=== PATIENT | female | born 1935 | race Caucasian/White ===

== ENCOUNTER 2017-10-03 17:10 | Inpatient (IN) | payer MEDICARE, OTHER ==
[~2017-10-03] VITALS: Ht 160 cm; Wt 112.0 kg
[~2017-10-03 17:10] MED LIST: AMLO5TAB4 PO; CALC-31 PO; LISI10TA2 PO; METO25TA4 PO; MULT-18 PO; POTA20TA12 PO; SIMV10TA PO; TRAM1TAB56 PO
[2017-10-03] MEDS ORDERED: IV NORMAL SALINE 1,000ML 1,000 ML IV SCH (18:10)
[2017-10-03] MEDS ORDERED: 0.9 % SODIUM CHLORIDE 10 ML DISP.SYRIN. IV PRN (18:15)
--- NOTE | 2017-10-03 18:34 | PHYS DOC ---
Past History Past Medical History: High Cholesterol, Hypertension Past Surgical History: Cholecystectomy Alcohol Use: None Drug Use: None Adult General Chief Complaint Chief Complaint: ABNORMAL LABS HPI HPI 81-year-old female patient with history of hypertension and dyslipidemia and resident of senior care with bedridden addition because of fractured hip brought in by EMS because of abnormal labs. Patient states for the last several days she did not have appetite and didn't eat and drink like her usual and was more weak and tired. Evaluation's niece states she did not acting like her usual and had blood test today. According to lab reports from senior care she had BUN of 115 creatinine of 2.3 with previous BUN of 64 and creatinine of 1.5. Patient had unremarkable CBC today. She denies chest pain, shortness of breath, fever and chills, urinary symptom. Review of Systems Review of Systems Constitutional: Denies fever or chills, reports generalized weakness [] Eyes: Denies change in visual acuity, redness, or eye pain [] HENT: Denies nasal congestion or sore throat [] Respiratory: Denies cough or shortness of breath [] Cardiovascular: No additional information not addressed in HPI [] GI: Denies abdominal pain, nausea, vomiting, bloody stools or diarrhea [] : Denies dysuria or hematuria [] Musculoskeletal: Denies back pain or joint pain [] Integument: Denies rash or skin lesions [] Neurologic: Denies headache, focal weakness or sensory changes [] Endocrine: Denies polyuria or polydipsia [] All other systems were reviewed and found to be within normal limits, except as documented in this note. Current Medications Current Medications Current Medications Medications (Trade) Dose Ordered Sig/Shahbaz Start Time Stop Time Status Last Admin Dose Admin Sodium Chloride (Normal Saline Flush) 10 ml QSHIFT PRN 10/03/17 18:15 Allergies Allergies Allergies Coded Allergies Type Severity Reaction Last Updated Verified No Known Drug Allergies 12/05/14 No Physical Exam Physical Exam Constitutional: Well developed, mild distress, non-toxic appearance. [] HENT: Normocephalic, atraumatic, bilateral external ears normal, oropharynx dry , no oral exudates, nose normal. [] Eyes: PERRLA, EOMI, conjunctiva normal, no discharge. [] Neck: Normal range of motion, no tenderness, supple, no stridor. [] Cardiovascular:Heart rate regular rhythm, no murmur [] Lungs & Thorax: Bilateral breath sounds clear to auscultation [] Abdomen: Bowel sounds normal, soft, no tenderness, no masses, no pulsatile masses. [] Skin: Warm, dry, no erythema, no rash. [] Back: No tenderness, no CVA tenderness. [] Extremities: No tenderness, no cyanosis, no clubbing, ROM intact, no edema. [] Neurologic: Alert and oriented X 3, patient keeps bilateral lower extremity in external rotation flexion without movement of lower extremity Psychologic: Affect normal, judgement normal, mood normal. [] EKG EKG EKG interpreted by me. EKG at 1814 showed normal sinus rhythm at rate of 84, left axis deviation, left anterior vascular block, LVH with repolarization abnormality, Q waves in anterior leads, no acute ST and T wave abnormality Radiology/Procedures Radiology/Procedures [] Course & Med Decision Making Course & Med Decision Making Pertinent Labs and Imaging studies reviewed. (See chart for details) Evaluation of patient in ER showed 81-year-old female patient with history of chronic renal failure sent from senior care because of acute on chronic renal failure. Patient had blood pressure of 90s that improved with 1 L of normal saline. Patient did not have leukocytosis or elevation of lactic acid or UTI. She was alert and oriented. Plan to admit patient with diagnosis of acute on chronic renal failure and dehydration. On-call hospitalist Dr. Recio accepted admission at 2038. Patient informed about plan of care and needs for admission. Dragon Disclaimer Dragon Disclaimer This electronic medical record was generated, in whole or in part, using a voice recognition dictation system. Departure Departure: Impression: Primary Impression: Acute on chronic renal failure Additional Impressions: Dehydration Hypermagnesemia Hypotension Disposition: ADMITTED INPATIENT (at 2038) Admitting Physician: Leigh Ann Recio Condition: IMPROVED Referrals: RANDALL TRUJILLO MD (PCP) Problem Qualifiers SPENCER BE MD Oct 03, 2017 18:33
[2017-10-03 19:51] LABS: BASO # 0.1 x10^3/uL (0.0-0.2); BASO % 1 % (0-3); EOS # 0.1 x10^3/uL (0.0-0.7); EOS % 2 % (0-3); HEMOGLOBIN 14.2 g/dL (12.0-15.5); LYMPH # 0.7 x10^3/uL (1.0-4.8); LYMPH % 12 % (24-48); MEAN CORPUSCULAR HEMOGLOBIN 32 pg (25-35); MEAN CORPUSCULAR HGB CONC 34 g/dL (31-37); MEAN CORPUSCULAR VOLUME 96 fL (79-100); MONO # 0.8 x10^3/uL (0.0-1.1); MONO % 12 % (0-9); NEUT # 4.5 x10^3uL (1.8-7.7); NEUT % 73 % (31-73); PLATELET COUNT 198 x10^3/uL (140-400); RED CELL DISTRIBUTION WIDTH 12.7 % (11.5-14.5); WHITE BLOOD COUNT 6.3 x10^3/uL (4.0-11.0)
[2017-10-03 20:06] LABS: ALBUMIN/GLOBULIN RATIO 0.7 (1.0-1.7); CALCIUM 9.1 mg/dL (8.5-10.1); CREATININE 2.9 mg/dL (0.6-1.0); GFR 15.6; MAGNESIUM 2.6 mg/dL (1.8-2.4); PHOSPHORUS 4.7 mg/dL (2.6-4.7); POTASSIUM 4.3 mmol/L (3.5-5.1); TOTAL BILIRUBIN 0.6 mg/dL (0.2-1.0); TOTAL PROTEIN 7.4 g/dL (6.4-8.2)
[2017-10-03 20:24] LABS: BILIRUBIN,URINE NEG (NEG); CLARITY,URINE HAZY; COLOR,URINE YELLOW; GLUCOSE,URINE NEG (NEG); NITRITE,URINE NEG (NEG); UROBILINOGEN,URINE 0.2 mg/dL (0.2 mg/dL)
[2017-10-03 20:25] LABS: BACTERIA,URINE 0 /HPF (0-FEW); SQUAMOUS EPITHELIAL CELL,UR FEW /LPF
[2017-10-03 20:26] LABS: AMORPHOUS SEDIMENT,UR PRESENT /HPF; HYALINE CASTS, URINE MOD /HPF
[2017-10-03] MEDS: IV NORMAL SALINE 1,000ML 1,000 ML IV SCH (22:00)
[2017-10-03 23:12] VITALS: BP 130/84
[2017-10-04] MEDS ORDERED: DIPH25CA58 PO (01:35)
[2017-10-04] MEDS ORDERED: BUPR150T15 PO (01:35)
[2017-10-04] MEDS ORDERED: BISA10SU2 RC (01:35)
[2017-10-04] MEDS ORDERED: FURO-68 PO (01:35)
[2017-10-04] MEDS ORDERED: MELA3TAB2 PO (01:35)
[2017-10-04] MEDS ORDERED: MAGN2400 PO (01:35)
[2017-10-04] MEDS ORDERED: HYDR-971 PO ×2 (01:35)
[2017-10-04] MEDS ORDERED: ACET500T68 PO (01:35)
[2017-10-04] MEDS ORDERED: OLAN2.5T3 PO (01:35)
[2017-10-04] MEDS ORDERED: POLY17PO5 PO (01:35)
[2017-10-04] MEDS ORDERED: DOCU-109 PO ×2 (01:35)
[2017-10-04] MEDS ORDERED: MIRA25TA PO (01:35)
[2017-10-04] MEDS ORDERED: LIDO700A39 TP (01:35)
[2017-10-04] MEDS ORDERED: METO2.5T PO (01:35)
[2017-10-04] MEDS ORDERED: CLOT15CR3 TP (01:35)
[2017-10-04] MEDS ORDERED: FAMO20TA5 PO (01:35)
[2017-10-04] MEDS: IV NORMAL SALINE 1,000ML 1,000 ML IV SCH ×3 (03:54→21:06)
[2017-10-04 05:45] VITALS: BP 102/61
--- NOTE | 2017-10-04 06:16 | EKG ---
[address] [address] Test Date: 2017-10-03 Test Time: 18:15:37 Pat Name: ALETA WILSON Department: Room: 125 A Gender: F [employer] Systems Engineer: : [id number] Requested By: SPENCER BE Order Number: [id number] Reading MD: Diaz Castano Measurements Intervals [place] Rate: 84 P: -88 TX: 172 QRS: -58 QRSD: 110 T: 64 QT: 370 QTc: 440 Interpretive Statements SINUS RHYTHM ABNORMAL LEFT AXIS DEVIATION LEFT ANTERIOR FASCICULAR BLOCK LVH WITH REPOLARIZATION ABNORMALITY QRS(T) CONTOUR ABNORMALITY CONSISTENT WITH POSSIBLE ANTERIOR INFARCT PROBABLY OLD ABNORMAL ECG RI6.01 No previous ECG available for comparison Electronically Signed On 10-08-2017 14:39:44 SPECIAL EDUCATION SUPERVISOR by Diaz Castano
[2017-10-04 06:36] LABS: BASO % 1 % (0-3); EOS # 0.1 x10^3/uL (0.0-0.7); EOS % 4 % (0-3); HEMATOCRIT 40.6 % (36.0-47.0); HEMOGLOBIN 13.8 g/dL (12.0-15.5); LYMPH # 0.7 x10^3/uL (1.0-4.8); LYMPH % 17 % (24-48); MEAN CORPUSCULAR HEMOGLOBIN 33 pg (25-35); MEAN CORPUSCULAR HGB CONC 34 g/dL (31-37); MEAN CORPUSCULAR VOLUME 96 fL (79-100); MONO # 0.5 x10^3/uL (0.0-1.1); MONO % 13 % (0-9); NEUT # 2.5 x10^3uL (1.8-7.7); NEUT % 65 % (31-73); PLATELET COUNT 165 x10^3/uL (140-400); RED BLOOD COUNT 4.24 x10^6/uL (3.50-5.40); RED CELL DISTRIBUTION WIDTH 12.7 % (11.5-14.5); WHITE BLOOD COUNT 3.9 x10^3/uL (4.0-11.0)
[2017-10-04] MEDS ORDERED: ACETAMINOPHEN 500 MG TABLET PO PRN (06:45)
[2017-10-04] MEDS ORDERED: CLOTRIMAZOLE/BETAMETH 1%-0.05% TOPICAL CREAM 15GM TUBE. TP PRN (06:45)
[2017-10-04] MEDS ORDERED: DOCUSATE SODIUM 100 MG CAPSULE PO PRN (06:45)
[2017-10-04] MEDS ORDERED: OLANZapine 2.5 MG TABLET PO PRN (06:45)
[2017-10-04] MEDS ORDERED: FAMOTIDINE 20 MG TABLET PO PRN (06:45)
[2017-10-04] MEDS ORDERED: HYDROcodone/APAP 5/325MG 1 TAB TABLET PO PRN (06:45)
[2017-10-04] MEDS ORDERED: BISACODYL 10 MG SUPP.RECT RC PRN (06:45)
[2017-10-04 06:57] LABS: ALBUMIN 2.7 g/dL (3.4-5.0); ALBUMIN/GLOBULIN RATIO 0.7 (1.0-1.7); CALCIUM 8.7 mg/dL (8.5-10.1); CREATININE 2.3 mg/dL (0.6-1.0); GFR 20.4; MAGNESIUM 2.4 mg/dL (1.8-2.4); POTASSIUM 4.2 mmol/L (3.5-5.1); TOTAL BILIRUBIN 0.5 mg/dL (0.2-1.0); TOTAL PROTEIN 6.7 g/dL (6.4-8.2)
--- NOTE | 2017-10-04 07:59 | RAD ---
Portable chest, 10/03/2017: History: Dehydration The patient is rotated to the right with kyphotic in positioning. The depth of inspiration is suboptimal. The heart is probably at the upper limits of normal in size. The pulmonary vascularity is normal. There is mild linear atelectasis or scarring in the lung bases. The upper lung shelley are clear. No pleural fluid is seen. Degenerative changes are evident in the spine. IMPRESSION: Mild bibasilar linear atelectasis and/or scarring.
[2017-10-04] MEDS: MULTIVITAMIN with MINERAL TABLET. PO SCH (08:29)
[2017-10-04] MEDS: POLYETHYLENE GLYCOL 3350 17 GM PACKET. PO SCH (08:29)
[2017-10-04] MEDS: HYDROcodone/APAP 5/325MG 1 TAB TABLET PO SCH ×3 (08:29→21:01)
[2017-10-04] MEDS: buPROPion XL 150 MG TAB.ER.24H PO SCH (08:29)
[2017-10-04] MEDS: DOCUSATE SODIUM 100 MG CAPSULE PO SCH ×2 (08:30→21:01)
[2017-10-04] MEDS: LIDOCAINE (700MG/PATCH) PATCH. TP SCH (08:31)
[2017-10-04 11:22] VITALS: BP 99/58
--- NOTE | 2017-10-04 12:27 | HP ---
ADMIT DATE: 10/03/2017 REASON FOR ADMISSION: Abnormal labs, acute renal failure. HISTORY OF PRESENT ILLNESS: This is an 81-year-old female with a history of hypertension who was brought to the Emergency Room because of abnormal labs. The patient has not had much to eat or drink in the last several days, but I believe she is continuing to get her diuretics. Labs from the detention revealed a BUN of 115, creatinine of 2.3. Previous had been BUN of 64 and creatinine of 1.5. The patient was admitted. PAST MEDICAL HISTORY: Osteoarthritis, bilateral clubfeet, nonambulatory status, hypertension, hyperlipidemia. PAST SURGICAL HISTORY: Cholecystectomy. SOCIAL HISTORY: Resides in [place] currently. MEDICATIONS: Reviewed. The patient has been on lisinopril 10, metolazone 2.5 three times a week as well as Lasix 40 mg twice a day. These have been held. ALLERGIES: None. REVIEW OF SYSTEMS: The patient really did not wish to talk and kept asking me to raise the head of the bed, close the curtains and such type like that. She did not allow me to examine her. OBJECTIVE: VITAL SIGNS: Blood pressure 102/61, pulse 84, respirations 20, temperature 98.2, pulse ox 94% on room air. Height 63 inches, weight 249 pounds. GENERAL: Elderly female in no acute distress. Her color is pale. She is mildly hard of hearing. HEENT: Her eyes are clear. Nose is patent. Throat, tongue slightly dry. NECK: Supple. LUNGS: Clear. CARDIOVASCULAR: Regular rhythm and rate, 2/6 systolic murmur. ABDOMEN: Soft, nontender. EXTREMITIES: Without edema. She has bilateral deformed clubfeet. She is nonambulatory. LABORATORY DATA: White blood cell count 3.9, lymphs 17, monos 13. Chemistry: Yesterday, BUN was 123, creatinine was 2.9. This morning after hydration, BUN is 109, creatinine is 2.3. Albumin is 2.7. INR is 1.4. ASSESSMENT: 1. Acute renal failure secondary to continued diuretics without eating and drinking. 2. Functional quadriplegia. The patient is a total care patient. 3. Weakness. 4. Dehydration. 5. Severe protein-calorie malnutrition. PLAN: Hydration and treat other medical conditions. FLOR JOLLEY DO DR: Nahun JOB#: [id number] / [id number]
[2017-10-04 17:17] VITALS: BP 117/63
[2017-10-04 19:46] VITALS: BP 101/62
[2017-10-04] MEDS: MELATONIN 3 MG TABLET PO SCH (21:01)
[2017-10-04] MEDS: MIRABEGRON 25 MG TAB.ER.24H PO SCH (21:06)
[2017-10-04 23:55] VITALS: BP 106/75
[2017-10-05 07:00] LABS: ALBUMIN 2.7 g/dL (3.4-5.0); ALBUMIN/GLOBULIN RATIO 0.7 (1.0-1.7); CREATININE 1.5 mg/dL (0.6-1.0); GFR 33.3; MAGNESIUM 2.4 mg/dL (1.8-2.4); POTASSIUM 3.8 mmol/L (3.5-5.1); TOTAL BILIRUBIN 0.5 mg/dL (0.2-1.0); TOTAL PROTEIN 6.5 g/dL (6.4-8.2)
[2017-10-05 07:08] LABS: BASO % 1 % (0-3); EOS # 0.2 x10^3/uL (0.0-0.7); EOS % 6 % (0-3); HEMATOCRIT 39.2 % (36.0-47.0); HEMOGLOBIN 13.2 g/dL (12.0-15.5); LYMPH # 0.7 x10^3/uL (1.0-4.8); LYMPH % 19 % (24-48); MEAN CORPUSCULAR HEMOGLOBIN 33 pg (25-35); MEAN CORPUSCULAR HGB CONC 34 g/dL (31-37); MEAN CORPUSCULAR VOLUME 97 fL (79-100); MONO # 0.5 x10^3/uL (0.0-1.1); MONO % 15 % (0-9); NEUT % 58 % (31-73); PLATELET COUNT 179 x10^3/uL (140-400); RED BLOOD COUNT 4.04 x10^6/uL (3.50-5.40); WHITE BLOOD COUNT 3.4 x10^3/uL (4.0-11.0)
[2017-10-05] MEDS: DOCUSATE SODIUM 100 MG CAPSULE PO SCH ×2 (09:03→20:28)
[2017-10-05] MEDS: MULTIVITAMIN with MINERAL TABLET. PO SCH (09:03)
[2017-10-05] MEDS: HYDROcodone/APAP 5/325MG 1 TAB TABLET PO SCH ×3 (09:03→20:27)
[2017-10-05] MEDS: buPROPion XL 150 MG TAB.ER.24H PO SCH (09:03)
[2017-10-05] MEDS: LIDOCAINE (700MG/PATCH) PATCH. TP SCH (09:04)
[2017-10-05 09:11] LABS: % BASOS 1 % (0-3); % EOS 7 % (0-5); % LYMPHS 22 % (24-48); % MONOS 9 % (0-10); % SEGS 61 % (35-66)
[2017-10-05 09:12] LABS: PLT ESTIMATE ADEQUATE (ADEQUATE)
[2017-10-05 10:16] VITALS: BP 129/80
[2017-10-05 14:00] VITALS: BP 104/62
--- NOTE | 2017-10-05 18:43 | PDOC ---
Exam Note: Nic Note: Please also refer to the separate dictated note~for this date of service dictated separately.~Patient seen individually. Discussed the patient with Nursing staff reviewed the chart.~Reviewed interim history and current functioning. Reviewed vital signs,~Labs/ Radiology~and current medications noted below. Continue current treatment with the changes noted in the dictated addendum note Assessment: Vital Signs: Vital Signs Date Time Temp Pulse Resp B/P (MAP) Pulse Ox O2 Delivery O2 Flow Rate FiO2 10/05/17 14:00 97.5 75 24 104/62 (76) 96 10/05/17 10:16 Room Air I&O Intake and Output 10/05/17 07:00 Intake Total 3401.77 ml Output Total 1800 ml Balance 1601.77 ml Intake Oral 730 ml IV Total 2671.77 ml Output Urine Total 1800 ml Labs: Laboratory Tests Test 10/05/17 06:27 White Blood Count 3.4 x10^3/uL (4.0-11.0) L Red Blood Count 4.04 x10^6/uL (3.50-5.40) Hemoglobin 13.2 g/dL (12.0-15.5) Hematocrit 39.2 % (36.0-47.0) Mean Corpuscular Volume 97 fL (79-100) Mean Corpuscular Hemoglobin 33 pg (25-35) Mean Corpuscular Hemoglobin Concent 34 g/dL (31-37) Red Cell Distribution Width 13.0 % (11.5-14.5) Platelet Count 179 x10^3/uL (140-400) Neutrophils (%) (Auto) 58 % (31-73) Lymphocytes (%) (Auto) 19 % (24-48) L Monocytes (%) (Auto) 15 % (0-9) H Eosinophils (%) (Auto) 6 % (0-3) H Basophils (%) (Auto) 1 % (0-3) Neutrophils # (Auto) 2.0 x10^3uL (1.8-7.7) Lymphocytes # (Auto) 0.7 x10^3/uL (1.0-4.8) L Monocytes # (Auto) 0.5 x10^3/uL (0.0-1.1) Eosinophils # (Auto) 0.2 x10^3/uL (0.0-0.7) Basophils # (Auto) 0.0 x10^3/uL (0.0-0.2) Segmented Neutrophils % 61 % (35-66) Lymphocytes % 22 % (24-48) L Monocytes % 9 % (0-10) Eosinophils % 7 % (0-5) H Basophils % 1 % (0-3) Platelet Estimate Adequate (ADEQUATE) Sodium Level 144 mmol/L (136-145) Potassium Level 3.8 mmol/L (3.5-5.1) Chloride Level 108 mmol/L (98-107) H Carbon Dioxide Level 24 mmol/L (21-32) Anion Gap 12 (6-14) Blood Urea Nitrogen 79 mg/dL (7-20) H Creatinine 1.5 mg/dL (0.6-1.0) H Estimated GFR (Cockcroft-Gault) 33.3 BUN/Creatinine Ratio 53 (6-20) H Glucose Level 79 mg/dL (70-99) Calcium Level 9.0 mg/dL (8.5-10.1) Magnesium Level 2.4 mg/dL (1.8-2.4) Total Bilirubin 0.5 mg/dL (0.2-1.0) Aspartate Amino Transferase (AST) 21 U/L (15-37) Alanine Aminotransferase (ALT) 13 U/L (14-59) L Alkaline Phosphatase 69 U/L (46-116) Total Protein 6.5 g/dL (6.4-8.2) Albumin 2.7 g/dL (3.4-5.0) L Albumin/Globulin Ratio 0.7 (1.0-1.7) L Current Medications: Meds: Current Medications Sodium Chloride 1,000 ml @ 1,000 mls/hr Q1H IV Last administered on 10/03/17at 18:40; Start 10/03/17 at 18:10; Stop 10/03/17 at 19:09; Status DC Sodium Chloride (Normal Saline Flush) 10 ml QSHIFT PRN IV AFTER MEDS AND BLOOD DRAWS; Start 10/03/17 at 18:15 Sodium Chloride 1,000 ml @ 100 mls/hr Q10H IV Last administered on 10/04/17at 21 :06; Start 10/03/17 at 20:40; Stop 10/04/17 at 20:39; Status DC Acetaminophen (Tylenol) 1,000 mg PRN Q6HRS PRN PO PAIN; Start 10/04/17 at 06:45 Bisacodyl (Dulcolax Supp) 10 mg PRN DAILY PRN RC CONSTIPATION; Start 10/04/17 at 06:45 Bupropion HCl (Wellbutrin Xl) 150 mg DAILY PO Last administered on 10/05/17at 09: 03; Start 10/04/17 at 09:00 Betamethasone/ Clotrimazole (Lotrisone) 1 armond PRN TID PRN TP Antifungal / Redness; Start 10/04/17 at 06:45 Docusate Sodium (Colace) 100 mg BID PO Last administered on 10/05/17at 09:03; Start 10/04/17 at 09:00 Docusate Sodium (Colace) 100 mg PRN DAILY PRN PO CONSTIPATION; Start 10/04/17 at 06:45 Famotidine (Pepcid) 20 mg PRN DAILY PRN PO GERD; Start 10/04/17 at 06:45 Acetaminophen/ Hydrocodone Bitart (Lortab 5/325) 1 tab PRN Q6HRS PRN PO PAIN; Start 10/04/17 at 06:45 Acetaminophen/ Hydrocodone Bitart (Lortab 5/325) 1 tab TID PO Last administered on 10/05/17at 14:47; Start 10/04/17 at 09:00 Lidocaine (Lidoderm) 1 patch DAILY TP Last administered on 10/05/17at 09:04; Start 10/04/17 at 09:00 Olanzapine (ZyPREXA) 1.25 mg PRN Q2HR PRN PO ANXIETY / AGITATION; Start at 06:45 Polyethylene Glycol (miraLAX) 17 gm QODAY PO ; Start 10/04/17 at 09:00 Melatonin 3 mg QHS PO Last administered on 10/04/17at 21:01; Start 10/04/17 at 21: 00 Multivitamins/ Calcium (Thera-M Plus) 1 tab DAILY PO Last administered on at 09:03; Start 10/04/17 at 09:00 Active Scripts Active Reported Lotrisone Cream (Clotrimazole/Betamethasone Dip) 15 Gm Cream..g. 1 Armond TP PRN TID PRN LAST DOSE GIVEN: DATE: TIME: NEXT DOSE DUE: DATE: TIME: Benadryl (Diphenhydramine Hcl) 25 Mg Capsule 50 Mg PO HS PRN LAST DOSE GIVEN: DATE: TIME: NEXT DOSE DUE: DATE: TIME: Famotidine 20 Mg Tablet 20 Mg PO PRN DAILY PRN LAST DOSE GIVEN: DATE: TIME: NEXT DOSE DUE: DATE: TIME: Raven 5-325 Tablet (Hydrocodone Bit/Acetaminophen) 1 Each Tablet 1 Tab PO TID LAST DOSE GIVEN: DATE: TIME: NEXT DOSE DUE: DATE: TIME: Lasix (Furosemide) 40 Mg Tablet 40 Mg PO BID LAST DOSE GIVEN: DATE: TIME: NEXT DOSE DUE: DATE: TIME: Colace (Docusate Sodium) 100 Mg Capsule 100 Mg PO BID LAST DOSE GIVEN: DATE: TIME: NEXT DOSE DUE: DATE: TIME: Melatonin 3 Mg Tablet 3 Mg PO HS LAST DOSE GIVEN: DATE: TIME: NEXT DOSE DUE: DATE: TIME: Myrbetriq (Mirabegron) 25 Mg Tab.er.24h 25 Mg PO HS LAST DOSE GIVEN: DATE: TIME: NEXT DOSE DUE: DATE: TIME: Zyprexa (Olanzapine) 2.5 Mg Tablet 1.25 Mg PO PRN Q2HR PRN LAST DOSE GIVEN: DATE: TIME: NEXT DOSE DUE: DATE: TIME: Wellbutrin Xl (Bupropion Hcl) 150 Mg Tab.er.24h 150 Mg PO DAILY LAST DOSE GIVEN: DATE: TIME: NEXT DOSE DUE: DATE: TIME: Metolazone 2.5 Mg Tablet 2.5 Mg PO 3X/WEEK LAST DOSE GIVEN: DATE: TIME: NEXT DOSE DUE: DATE: TIME: Lidocaine 1 Each Adh..patch 1 Patch TP DAILY LAST DOSE GIVEN: DATE: TIME: NEXT DOSE DUE: DATE: TIME: Miralax (Polyethylene Glycol 3350) 17 Gm Powd.pack 1 Packet PO QODAY LAST DOSE GIVEN: DATE: TIME: NEXT DOSE DUE: DATE: TIME: Milk Of Magnesia (Magnesium Hydroxide) 2,400 Mg/10 Ml Oral.susp 30 Ml PO PRN BID PRN LAST DOSE GIVEN: DATE: TIME: NEXT DOSE DUE: DATE: TIME: Bisacodyl 10 Mg Supp.rect 10 Mg RC PRN DAILY PRN LAST DOSE GIVEN: DATE: TIME: NEXT DOSE DUE: DATE: TIME: Colace (Docusate Sodium) 100 Mg Capsule 100 Mg PO PRN DAILY PRN LAST DOSE GIVEN: DATE: TIME: NEXT DOSE DUE: DATE: TIME: Raven 5-325 Tablet (Hydrocodone Bit/Acetaminophen) 1 Each Tablet 1 Tab PO PRN Q6HRS PRN LAST DOSE GIVEN: DATE: TIME: NEXT DOSE DUE: DATE: TIME: Acetaminophen 500 Mg Tablet 1,000 Mg PO PRN Q6HRS PRN LAST DOSE GIVEN: DATE: TIME: NEXT DOSE DUE: DATE: TIME: Daily Vitamin (Multivitamin) 1 Each Tablet 1 Tab PO DAILY LAST DOSE GIVEN: DATE: TIME: NEXT DOSE DUE: DATE: TIME: Lisinopril 10 Mg Tablet 10 Mg PO DAILY LAST DOSE GIVEN: DATE: TIME: NEXT DOSE DUE: DATE: TIME: Potassium Chloride 20 Meq Tab.er.prt 20 Meq PO BID LAST DOSE GIVEN: DATE: TIME: NEXT DOSE DUE: DATE: TIME: I have reviewed the current psychotropics carefully including drug interactions. Risk benefit ratio favors no change other than as noted in my dictated progress note. Diagnosis: Problems: (1) Major depressive disorder, recurrent episode (2) Acute on chronic renal failure (3) Hypotension (4) Dehydration (5) Hypertension KRISTINA HOOPER MD Oct 05, 2017 18:43
[2017-10-05 19:06] VITALS: BP 106/63
[2017-10-05] MEDS: MIRABEGRON 25 MG TAB.ER.24H PO SCH (20:27)
[2017-10-05] MEDS: MELATONIN 3 MG TABLET PO SCH (20:28)
[2017-10-05 23:00] VITALS: BP 131/76
--- NOTE | 2017-10-06 01:00 | PN ---
DATE: 10/05/2017 CURRENT PROBLEMS: 1. Acute renal failure secondary to diuretics and poor p.o. intake, improving. 2. Functional quadriplegia. The patient is a total care patient. 3. Weakness. 4. Dehydration. 5. Severe protein calorie malnutrition. 6. Altered mental status, confused. SUBJECTIVE: The patient is an 81-year-old female who was admitted because of severely abnormal labs, BUN of 115, creatinine of 2.3. Normally, her BUN is around in the 60s with a creatinine of 1.5. She is doing better with hydration and holding the metolazone and her blood pressure medication. The family is quite concerned about her altered mental status and her confusion. She is calling out constantly and calling the nurses, but is able to push the nurses button, also does not understand how she got to the hospital and why she is here, this evidently is new. We did call the retirement, though the patient does have a lot of needs and is perfectly capable of requesting her needs. OBJECTIVE: VITAL SIGNS: Blood pressure 129/80, pulse 97, respirations 20, pulse ox 93% on room air. GENERAL: Color is slightly pale. HEENT: Nose is patent. Tongue is moist. NECK: Supple. LUNGS: Clear. CARDIOVASCULAR: Regular rhythm and rate with a 2/6 systolic murmur. ABDOMEN: Large and obese. EXTREMITIES: With nonpitting edema. She has bilateral clubfeet. Camacho catheter is draining clear yellow urine. Output yesterday 1800, input 3401. LABORATORY DATA TODAY: Essentially normal CBC. BUN now has gone from 123 to 79, creatinine from 2.9 to 1.5. Albumin is 2.7. Blood culture negative after 1 day. PLAN: Continue gentle hydration, psychiatry consult. Monitor her labs again and may discharge her tomorrow, was planning on doing it today, but family would like her to have a psych consult. FLOR JOLLEY DO DR: DANIEL/tyra JOB#: [id number] / [id number]
[2017-10-06 06:10] VITALS: BP 113/73
[2017-10-06 06:48] LABS: HEMATOCRIT 38.1 % (36.0-47.0); HEMOGLOBIN 13.1 g/dL (12.0-15.5); RED BLOOD COUNT 4.03 x10^6/uL (3.50-5.40); RED CELL DISTRIBUTION WIDTH 12.7 % (11.5-14.5); WHITE BLOOD COUNT 3.2 x10^3/uL (4.0-11.0)
[2017-10-06 07:00] LABS: ALBUMIN 2.7 g/dL (3.4-5.0); ALBUMIN/GLOBULIN RATIO 0.7 (1.0-1.7); CALCIUM 9.2 mg/dL (8.5-10.1); CREATININE 1.2 mg/dL (0.6-1.0); GFR 43.1; MAGNESIUM 2.1 mg/dL (1.8-2.4); POTASSIUM 3.8 mmol/L (3.5-5.1); TOTAL BILIRUBIN 0.6 mg/dL (0.2-1.0); TOTAL PROTEIN 6.4 g/dL (6.4-8.2)
[2017-10-06] MEDS: DOCUSATE SODIUM 100 MG CAPSULE PO SCH ×2 (10:24→21:37)
[2017-10-06] MEDS: HYDROcodone/APAP 5/325MG 1 TAB TABLET PO SCH ×3 (10:24→21:37)
[2017-10-06] MEDS: MULTIVITAMIN with MINERAL TABLET. PO SCH (10:24)
[2017-10-06] MEDS: POLYETHYLENE GLYCOL 3350 17 GM PACKET. PO SCH (10:24)
[2017-10-06] MEDS: buPROPion XL 150 MG TAB.ER.24H PO SCH (10:24)
[2017-10-06] MEDS: LIDOCAINE (700MG/PATCH) PATCH. TP SCH (10:25)
[2017-10-06 10:58] VITALS: BP 126/76
[2017-10-06 11:14] LABS: INFLUENZA A PATIENT NEGATIVE (NEGATIVE); INFLUENZA B PATIENT NEGATIVE (NEGATIVE)
--- NOTE | 2017-10-06 11:56 | RAD ---
PQRS Compliance Statement: One or more of the following individualized dose reduction techniques were utilized for this examination: 1. Automated exposure control 2. Adjustment of the mA and/or kV according to patient size 3. Use of iterative reconstruction technique CT HEAD WITHOUT CONTRAST History: increased confusion x2 weeks. Comparison: None. Technique: Axial images are obtained of the head from the skull base through the vertex without IV contrast. Findings: No mass-effect, midline shift, hemorrhage or obvious acute infarction is identified. Basilar cisterns are patent. The ventricles and sulci are prominent, consistent with age-related cerebral atrophy. There is scattered periventricular white matter hypoattenuation. This is a nonspecific finding but is commonly due to chronic small vessel ischemic disease in a patient of this age. Bone windows demonstrate no acute calvarial abnormality. The visualized paranasal sinuses appear clear. Mastoid air cells are well aerated. IMPRESSION: 1. No acute intracranial abnormality. 2. Age-related cerebral atrophy and periventricular white matter changes of chronic small vessel ischemic disease.
[2017-10-06 15:00] VITALS: BP 125/73
--- NOTE | 2017-10-06 17:38 | PDOC ---
Exam Note: Nic Note: Please also refer to the separate dictated note~for this date of service dictated separately.~Patient seen individually. Discussed the patient with Nursing staff reviewed the chart.~Reviewed interim history and current functioning. Reviewed vital signs,~Labs/ Radiology~and current medications noted below. Continue current treatment with the changes noted in the dictated addendum note Assessment: Vital Signs: Vital Signs Date Time Temp Pulse Resp B/P (MAP) Pulse Ox O2 Delivery O2 Flow Rate FiO2 10/06/17 15:56 92 Room Air 10/06/17 15:00 97.4 83 125/73 (90) 10/06/17 10:58 20 I&O Intake and Output 10/06/17 07:00 Intake Total 820 ml Output Total 1850 ml Balance -1030 ml Intake Oral 820 ml Output Urine Total 1850 ml Labs: Laboratory Tests Test 10/06/17 06:35 10/06/17 10:40 White Blood Count 3.2 x10^3/uL (4.0-11.0) L Red Blood Count 4.03 x10^6/uL (3.50-5.40) Hemoglobin 13.1 g/dL (12.0-15.5) Hematocrit 38.1 % (36.0-47.0) Mean Corpuscular Volume 95 fL (79-100) Mean Corpuscular Hemoglobin 33 pg (25-35) Mean Corpuscular Hemoglobin Concent 34 g/dL (31-37) Red Cell Distribution Width 12.7 % (11.5-14.5) Platelet Count 127 x10^3/uL (140-400) L Sodium Level 140 mmol/L (136-145) Potassium Level 3.8 mmol/L (3.5-5.1) Chloride Level 104 mmol/L (98-107) Carbon Dioxide Level 24 mmol/L (21-32) Anion Gap 12 (6-14) Blood Urea Nitrogen 52 mg/dL (7-20) H Creatinine 1.2 mg/dL (0.6-1.0) H Estimated GFR (Cockcroft-Gault) 43.1 BUN/Creatinine Ratio 43 (6-20) H Glucose Level 75 mg/dL (70-99) Calcium Level 9.2 mg/dL (8.5-10.1) Magnesium Level 2.1 mg/dL (1.8-2.4) Total Bilirubin 0.6 mg/dL (0.2-1.0) Aspartate Amino Transferase (AST) 21 U/L (15-37) Alanine Aminotransferase (ALT) 16 U/L (14-59) Alkaline Phosphatase 67 U/L (46-116) Total Protein 6.4 g/dL (6.4-8.2) Albumin 2.7 g/dL (3.4-5.0) L Albumin/Globulin Ratio 0.7 (1.0-1.7) L Influenza Type A (Rapid) Negative (NEGATIVE) Influenza Type B (Rapid) Negative (NEGATIVE) Current Medications: Meds: Current Medications Sodium Chloride 1,000 ml @ 1,000 mls/hr Q1H IV Last administered on 10/03/17at 18:40; Start 10/03/17 at 18:10; Stop 10/03/17 at 19:09; Status DC Sodium Chloride (Normal Saline Flush) 10 ml QSHIFT PRN IV AFTER MEDS AND BLOOD DRAWS; Start 10/03/17 at 18:15 Sodium Chloride 1,000 ml @ 100 mls/hr Q10H IV Last administered on 10/04/17at 21 :06; Start 10/03/17 at 20:40; Stop 10/04/17 at 20:39; Status DC Acetaminophen (Tylenol) 1,000 mg PRN Q6HRS PRN PO PAIN Last administered on 10/05at 23:12; Start 10/04/17 at 06:45 Bisacodyl (Dulcolax Supp) 10 mg PRN DAILY PRN RC CONSTIPATION; Start 10/04/17 at 06:45 Bupropion HCl (Wellbutrin Xl) 150 mg DAILY PO Last administered on 10/06/17at 10 :24; Start 10/04/17 at 09:00; Stop 10/06/17 at 16:18; Status DC Betamethasone/ Clotrimazole (Lotrisone) 1 armond PRN TID PRN TP Antifungal / Redness; Start 10/04/17 at 06:45 Docusate Sodium (Colace) 100 mg BID PO Last administered on 10/06/17at 10:24; Start 10/04/17 at 09:00 Docusate Sodium (Colace) 100 mg PRN DAILY PRN PO CONSTIPATION; Start 10/04/17 at 06:45 Famotidine (Pepcid) 20 mg PRN DAILY PRN PO GERD; Start 10/04/17 at 06:45 Acetaminophen/ Hydrocodone Bitart (Lortab 5/325) 1 tab PRN Q6HRS PRN PO PAIN; Start 10/04/17 at 06:45 Acetaminophen/ Hydrocodone Bitart (Lortab 5/325) 1 tab TID PO Last administered on 10/06/17at 14:46; Start 10/04/17 at 09:00 Lidocaine (Lidoderm) 1 patch DAILY TP Last administered on 10/06/17at 10:25; Start 10/04/17 at 09:00 Olanzapine (ZyPREXA) 1.25 mg PRN Q2HR PRN PO ANXIETY / AGITATION; Start at 06:45 Polyethylene Glycol (miraLAX) 17 gm QODAY PO Last administered on 10/06/17at 10: 24; Start 10/04/17 at 09:00 Melatonin 3 mg QHS PO Last administered on 10/05/17at 20:28; Start 10/04/17 at 21: 00 Multivitamins/ Calcium (Thera-M Plus) 1 tab DAILY PO Last administered on at 10:24; Start 10/04/17 at 09:00 Mirtazapine (Remeron) 7.5 mg QHS PO ; Start 10/06/17 at 21:00 Citalopram Hydrobromide (CeleXA) 10 mg DAILY PO ; Start 10/07/17 at 09:00 Active Scripts Active Reported Lotrisone Cream (Clotrimazole/Betamethasone Dip) 15 Gm Cream..g. 1 Armond TP PRN TID PRN LAST DOSE GIVEN: DATE: TIME: NEXT DOSE DUE: DATE: TIME: Benadryl (Diphenhydramine Hcl) 25 Mg Capsule 50 Mg PO HS PRN LAST DOSE GIVEN: DATE: TIME: NEXT DOSE DUE: DATE: TIME: Famotidine 20 Mg Tablet 20 Mg PO PRN DAILY PRN LAST DOSE GIVEN: DATE: TIME: NEXT DOSE DUE: DATE: TIME: [place] 5-325 Tablet (Hydrocodone Bit/Acetaminophen) 1 Each Tablet 1 Tab PO TID LAST DOSE GIVEN: DATE: TIME: NEXT DOSE DUE: DATE: TIME: Lasix (Furosemide) 40 Mg Tablet 40 Mg PO BID LAST DOSE GIVEN: DATE: TIME: NEXT DOSE DUE: DATE: TIME: Colace (Docusate Sodium) 100 Mg Capsule 100 Mg PO BID LAST DOSE GIVEN: DATE: TIME: NEXT DOSE DUE: DATE: TIME: Melatonin 3 Mg Tablet 3 Mg PO HS LAST DOSE GIVEN: DATE: TIME: NEXT DOSE DUE: DATE: TIME: Myrbetriq (Mirabegron) 25 Mg Tab.er.24h 25 Mg PO HS LAST DOSE GIVEN: DATE: TIME: NEXT DOSE DUE: DATE: TIME: Zyprexa (Olanzapine) 2.5 Mg Tablet 1.25 Mg PO PRN Q2HR PRN LAST DOSE GIVEN: DATE: TIME: NEXT DOSE DUE: DATE: TIME: Wellbutrin Xl (Bupropion Hcl) 150 Mg Tab.er.24h 150 Mg PO DAILY LAST DOSE GIVEN: DATE: TIME: NEXT DOSE DUE: DATE: TIME: Metolazone 2.5 Mg Tablet 2.5 Mg PO 3X/WEEK LAST DOSE GIVEN: DATE: TIME: NEXT DOSE DUE: DATE: TIME: Lidocaine 1 Each Adh..patch 1 Patch TP DAILY LAST DOSE GIVEN: DATE: TIME: NEXT DOSE DUE: DATE: TIME: Miralax (Polyethylene Glycol 3350) 17 Gm Powd.pack 1 Packet PO QODAY LAST DOSE GIVEN: DATE: TIME: NEXT DOSE DUE: DATE: TIME: Milk Of Magnesia (Magnesium Hydroxide) 2,400 Mg/10 Ml Oral.susp 30 Ml PO PRN BID PRN LAST DOSE GIVEN: DATE: TIME: NEXT DOSE DUE: DATE: TIME: Bisacodyl 10 Mg Supp.rect 10 Mg RC PRN DAILY PRN LAST DOSE GIVEN: DATE: TIME: NEXT DOSE DUE: DATE: TIME: Colace (Docusate Sodium) 100 Mg Capsule 100 Mg PO PRN DAILY PRN LAST DOSE GIVEN: DATE: TIME: NEXT DOSE DUE: DATE: TIME: [place] 5-325 Tablet (Hydrocodone Bit/Acetaminophen) 1 Each Tablet 1 Tab PO PRN Q6HRS PRN LAST DOSE GIVEN: DATE: TIME: NEXT DOSE DUE: DATE: TIME: Acetaminophen 500 Mg Tablet 1,000 Mg PO PRN Q6HRS PRN LAST DOSE GIVEN: DATE: TIME: NEXT DOSE DUE: DATE: TIME: Daily Vitamin (Multivitamin) 1 Each Tablet 1 Tab PO DAILY LAST DOSE GIVEN: DATE: TIME: NEXT DOSE DUE: DATE: TIME: Lisinopril 10 Mg Tablet 10 Mg PO DAILY LAST DOSE GIVEN: DATE: TIME: NEXT DOSE DUE: DATE: TIME: Potassium Chloride 20 Meq Tab.er.prt 20 Meq PO BID LAST DOSE GIVEN: DATE: TIME: NEXT DOSE DUE: DATE: TIME: I have reviewed the current psychotropics carefully including drug interactions. Risk benefit ratio favors no change other than as noted in my dictated progress note. Diagnosis: Problems: (1) Mild cognitive disorder (2) Major depressive disorder, recurrent episode KRISTINA HOOPER MD Oct 06, 2017 17:38
[2017-10-06 19:30] VITALS: BP 121/73
[2017-10-06] MEDS ORDERED: MIRTAZAPINE 7.5 MG TABLET. PO SCH (21:00)
[2017-10-06] MEDS: MELATONIN 3 MG TABLET PO SCH (21:00)
[2017-10-06] MEDS: MIRABEGRON 25 MG TAB.ER.24H PO SCH (21:37)
[2017-10-06 22:44] VITALS: BP 115/68
--- NOTE | 2017-10-07 01:30 | PN ---
DATE: CURRENT PROBLEMS: 1. Acute renal failure secondary to diuretics and poor p.o. intake, improving. 2. Functional quadriplegia. 3. Weakness. 4. Dehydration. 5. Severe protein calorie malnutrition. 6. Altered mental status, has remained confused. SUBJECTIVE: An 81-year-old female from [place]. The patient continues to call out continuously and asked for ice water. She will drink a lot of water, but will not eat her meals. She also complained of some back pain. This is not new. Dr. Martin requested a psych consult and Dr. Renee has seen her and requested a CT of the head. She is very tired and will not do very much for herself. OBJECTIVE: VITAL SIGNS: Blood pressure 113/73, temperature 97.6, pulse 77, respirations 20, pulse ox 95% on room air. GENERAL: Color is pale. HEENT: Nose is patent. Throat was clear. NECK: Supple. LUNGS: Clear. CARDIOVASCULAR: Regular rhythm and rate. ABDOMEN: Soft, nontender. EXTREMITIES: With bilateral clubfeet. GENITOURINARY: Camacho catheter draining certainly adequate amounts of clear low yellow urine. LABORATORY DATA: Her white both blood cell count is 3.2, platelet count 127,000. No left shift. BUN is 52, creatinine is 1.2. This is down from 123 BUN and 2.9. Albumin is 2.7. CT of the head is pending. PLAN: Await the results of CT of the head. Apparently, the patient was quite lively at one point a few weeks ago. She did have the flu prior to coming to the hospital and would not wear her oxygen had, long periods of time with hypoxia. I am not sure whether this has anything to do with it, but she will not eat anything, is drinking, but will not do a whole lot for herself. We will continue to monitor. FLOR JOLLEY DO DR: DANIEL/tyra JOB#: [id number] / [id number]
[2017-10-07 05:19] VITALS: BP 128/77
[2017-10-07] MEDS: HYDROcodone/APAP 5/325MG 1 TAB TABLET PO SCH (07:24)
[2017-10-07] MEDS: DOCUSATE SODIUM 100 MG CAPSULE PO SCH (07:24)
[2017-10-07] MEDS: MULTIVITAMIN with MINERAL TABLET. PO SCH (07:24)
[2017-10-07] MEDS ORDERED: CITALOPRAM 10 MG TABLET. PO SCH (09:00)
[2017-10-07] MEDS: LIDOCAINE (700MG/PATCH) PATCH. TP SCH (09:24)
[2017-10-07 10:33] LABS: BASO # 0.1 x10^3/uL (0.0-0.2); BASO % 1 % (0-3); EOS # 0.2 x10^3/uL (0.0-0.7); EOS % 5 % (0-3); HEMATOCRIT 39.8 % (36.0-47.0); HEMOGLOBIN 13.4 g/dL (12.0-15.5); LYMPH # 0.6 x10^3/uL (1.0-4.8); LYMPH % 13 % (24-48); MEAN CORPUSCULAR HEMOGLOBIN 32 pg (25-35); MEAN CORPUSCULAR HGB CONC 34 g/dL (31-37); MEAN CORPUSCULAR VOLUME 96 fL (79-100); MONO # 0.5 x10^3/uL (0.0-1.1); MONO % 12 % (0-9); NEUT # 3.1 x10^3uL (1.8-7.7); NEUT % 69 % (31-73); PLATELET COUNT 126 x10^3/uL (140-400); RED BLOOD COUNT 4.17 x10^6/uL (3.50-5.40); RED CELL DISTRIBUTION WIDTH 12.7 % (11.5-14.5); WHITE BLOOD COUNT 4.5 x10^3/uL (4.0-11.0)
[2017-10-07 10:51] LABS: ALBUMIN 2.7 g/dL (3.4-5.0); ALBUMIN/GLOBULIN RATIO 0.7 (1.0-1.7); CALCIUM 9.5 mg/dL (8.5-10.1); CREATININE 1.3 mg/dL (0.6-1.0); GFR 39.3; POTASSIUM 3.5 mmol/L (3.5-5.1); TOTAL BILIRUBIN 0.5 mg/dL (0.2-1.0); TOTAL PROTEIN 6.5 g/dL (6.4-8.2)
--- NOTE | 2017-10-07 10:58 | CONS ---
DATE OF CONSULTATION: 10/05/2017 PSYCHIATRIC CONSULTATION This late entry 10/05/2017, covers elements not covered in my initial note 10/05/2017. The patient is seen individually evening of 10/05/2017. Discussed with nursing staff, reviewed the chart. IDENTIFYING DATA: The patient is an 81-year-old female seen in bed 125, [facility] for psychiatric consult, requested by Dr. Leigh Ann Recio on account of the patient's refusing food, worsening confusion, change in mental status within the context of her acute renal failure and dehydration and failure of outpatient interventions at [facility]. CHIEF COMPLAINT: "I need my pillow changed. I need my head up and need the covers pulled up. The bed needs to be down." HISTORY OF PRESENT ILLNESS: The patient has been quite anxious, restless, as I met with her. This was shared by the nursing staff as well. She is constantly on the call light hollering at times with multiple somatic symptoms including back hurting, refusing oxygen, refusing food and drink, though she did have fluid intake on 10/05/2017, but no food and refused to eat. Sleep is fair. No clear symptoms of bipolar disorder. PAST PSYCHIATRIC HISTORY: Positive for depression, progressive memory deficits. PAST MEDICAL HISTORY: Acute renal failure, dehydration, osteoarthritis, bilateral clubfeet nonambulatory status, hypertension, hyperlipidemia. She has functional quadriplegia total care, severe protein-calorie malnutrition. PAST SURGICAL HISTORY: Cholecystectomy. ALLERGIES: None. FAMILY HISTORY: Noncontributory. SOCIAL HISTORY: The patient resides at [facility]. CURRENT PSYCHOTROPICS: Zyprexa 1.25 mg q.2 hours p.r.n. psychosis, agitation, melatonin 3 mg at bedtime, Wellbutrin XL 150 mg a day. MENTAL STATUS EXAMINATION: The patient was seen individually evening of 10/05/2017. She is quite anxious, restless, somatically preoccupied, wanting various things have changed in her environment as noted above. She said she was unaware of the year or where she was or even the city. Did not know the name of the President, but it is unclear whether she truly does not know these or preferred not to answer. She denied being depressed, but extremely anxious. No active suicidal or homicidal ideation. Short term memory is impaired. Language function intact. Attention span short. CT head was done at my request. No acute abnormality, age-related cerebral atrophy, periventricular white matter changes, chronic small vessel ischemic disease. IMPRESSION: Major depressive disorder; anxiety disorder, unspecified; cognitive disorder, unspecified. Rest as above. PLAN: CT head has been completed. Given her poor appetite we will go ahead and change her Wellbutrin to Remeron 7.5 mg at bedtime, which would help the anxiety also help hopefully stimulate the appetite somewhat and start Celexa 10 mg a day. Depending on how she does with this we may consider adding scheduled Zyprexa to augment the antidepressant and as an atypical antipsychotic or Seroquel again for the same reasons, but I would like to avoid the latter if possible. Dr. Recio, thank you for the opportunity to participate in your patient's care. We will follow with you. MAN Logan HOOPER MD DR: MICHAELA/tyra JOB#: [id number] / [id number]
[2017-10-07 11:09] VITALS: BP 136/80
--- NOTE | 2017-10-07 20:49 | PN ---
DATE: 10/07/2017 PROBLEMS: 1. Acute renal failure secondary to diuretics and poor p.o. intake. This is resolved. 2. Functional quadriplegia. 3. Weakness. 4. Dehydration. 5. Severe protein calorie malnutrition. 6. Frail elderly. 7. Poor anorexia. SUBJECTIVE: This is an 81-year-old female who has been in the hospital since 10/03/2017 when she was admitted for abnormal labs. She had very high BUN and creatinine, which is now resolved down to her baseline. She did have the flu previously had recovered from that, but she normally and very active person in the shelter, confined to a wheelchair, but playing cards and you know, interacting up with other residents, etc. She is more alert than she, but she still is very tired, sleeping a lot and does not want to eat. She is drinking some fluids and we are working very hard to get some boost in her. CAT scan of the head was negative for anything acute. OBJECTIVE: VITAL SIGNS: Blood pressure 128/77, pulse 77, temperature 98.1, pulse ox 94% on room air GENERAL: Still very sleepy. Nurses working with turning every 2 hours. LUNGS: Still clear. CARDIOVASCULAR: Regular rhythm and rate. ABDOMEN: Soft, nontender. EXTREMITIES: Without edema. She has bilateral club feet. LABORATORY DATA: Yesterday BUN 52, creatinine 1.2, albumin is 2.7. CBC slightly low, white count 3.2. PLAN: The patient is definitely altered as far as her strength goes, not sure what else we can do in the hospital for her. Can check a TSH and should she continue not to eat, I have asked her if she wanted a PEG tube, she said no, she did not. We will need to discuss with family as well. FLOR JOLLEY DO DR: DANIEL/tyra JOB#: [id number] / [id number]
--- NOTE | 2017-10-08 07:03 | PN ---
DATE: 10/07/2017 This late entry 10/06/2017 covers elements not covered in my initial note 10/06/2017. SUBJECTIVE: Per nursing report, the patient continues to refuse food, though she has taken some fluids, remains somewhat irritable, dismissive. CT head, no acute changes. REVIEW OF SYSTEMS: Ambulation impaired. No CV, , pulmonary, eye system symptoms on review, not very cooperative, answering this. MENTAL STATUS EXAM: Oriented to herself and at times situation, though when directly questioned, she said she did not know where she was or what the year was. Abstraction fair, computation impaired, language function intact, attention span short. Mood and affect somewhat labile. LABORATORY DATA: Reviewed. IMPRESSION: Psychotic disorder, unspecified; major depressive disorder with psychotic features; cognitive disorder, unspecified. Failure of oral fluid and food intake. PLAN: Continue current psychotropics noted in my initial note. Adjust further as clinically indicated. MAN Logan HOOPER MD DR: MICHAELA/tyra JOB#: [id number] / [id number]
== END 2017-10-07 12:45 | disposition home or self-care (01) | DRG 682 ==
LOC: ER 17:30 → 1 SOUTH 20:40
PROVIDERS: ADMIT Family Medicine; ATTEND Family Medicine
DX: N17.9 Acute kidney failure, unspecified (principal); E43 Unspecified severe protein-calorie malnutrition; I95.9 Hypotension, unspecified; R53.2 Functional quadriplegia; F33.3 Major depressive disorder, recurrent, severe with psychotic symptoms; Z68.41 Body mass index [BMI] 40.0-44.9, adult; E86.0 Dehydration; E83.41 Hypermagnesemia; E78.00 Pure hypercholesterolemia, unspecified; E78.5 Hyperlipidemia, unspecified; F09 Unspecified mental disorder due to known physiological condition; F41.9 Anxiety disorder, unspecified; I12.9 Hypertensive chronic kidney disease with stage 1 through stage 4 chronic kidney disease, or unspecified chronic kidney disease; N18.9 Chronic kidney disease, unspecified; T50.2X5A Adverse effect of carbonic-anhydrase inhibitors, benzothiadiazides and other diuretics, initial encounter; Z99.3 Dependence on wheelchair; M19.90 Unspecified osteoarthritis, unspecified site; Z90.49 Acquired absence of other specified parts of digestive tract; Y92.89 Other specified places as the place of occurrence of the external cause
CPT/HCPCS: 36415; 70450; 71045; 80053; 81001; 82553; 83605; 83735; 83880; 84100; 84443; 84484; 85007; 85025; 85027; 85610; 87040; 87641; 87804; 93005; J7030